=== PATIENT | female | born 1985 | race Caucasian/White ===

== ENCOUNTER → 2018-10-05 | Outpatient (CLI) | payer BC ==
--- NOTE | 2018-10-05 15:19 | US ---
EXAMINATION TYPE: US pelvis complete transvag DATE OF EXAM: 10/05/2018 COMPARISON: NONE CLINICAL HISTORY: N93.8 DUB. TECHNIQUE: Transvaginal (TV) and Transabdominal (TA) . Transabdominal sonographic images of the pel vis were acquired. Transvaginal sonographic images were medically necessary to better assess the fol lowing anatomy: Uterus Date of LMP: 09/06/18 EXAM MEASUREMENTS: Uterus: 9.0 x 4.9 x 5.0 cm Endometrial Stripe: 1.9 cm Right Ovary: 3.4 x 2.1 x 1.9 cm Left Ovary: 2.7 x 1.4 x 1.5 cm 1. Uterus: Anteverted, heterogeneous, multiple probable fibroids, 1.) 1.3 x 1.4 x 1.3cm, 2.) 2.1 x 2.0 x 1.7cm 2. Endometrium: Abnormally thickened 3. Right Ovary: wnl 4. Left Ovary: wnl 5. Bilateral Adnexa: wnl 6. Posterior cul-de-sac: wnl IMPRESSION: Heterogenous lobulated uterine myometrium with multiple probable uterine leiomyomas. Additionally the re is abnormal endometrial thickening with the endometrium measuring up to 1.9 cm. This could be on t he basis of endometrial hyperplasia, endometrial polyp or less likely endometrial neoplasm and could be further evaluated with sonohysterogram or direct visualization.
[2018-10-05 15:53] LABS: HCT 37.9 % (34.0-46.0); HGB 12.5 gm/dL (11.4-16.0); MCH 28.3 pg (25.0-35.0); MCV 85.6 fL (80.0-100.0); Mean Platelet Volume 6.8; Platelet Count 346 k/uL (150-450); RBC 4.43 m/uL (3.80-5.40); RDW 14.2 % (11.5-15.5); WBC 9.4 k/uL (3.8-10.6)
[2018-10-05 16:18] LABS: T4, Free (Free Thyroxine) 0.96 ng/dL (0.78-2.19)
[2018-10-05 23:12] LABS: Progesterone 3.3 ng/mL
== END ==
LOC: RADUSWWP 14:20
PROVIDERS: ATTEND Obstetrics & Gynecology
DX: R93.89 Abnormal findings on diagnostic imaging of other specified body structures (principal); N93.8 Other specified abnormal uterine and vaginal bleeding; Z13.29 Encounter for screening for other suspected endocrine disorder
CPT/HCPCS: 36415; 76830; 76856; 82670; 83001; 83002; 84144; 84146; 84439; 84443; 84479; 85027

== ENCOUNTER → 2018-12-03 | Day surgery (SDC) | payer BC ==
[2018-11-30 08:50] VITALS: BMI 26.7
[~2018-12-03] MED LIST: DEXAMETHASONE SOD PHOSPHATE 10 MG/ML 1 ML VIAL IV ONE; HYDROmorphone 0.5 MG/0.5 ML SYRINGE IVP PRN; KETOROLAC 30 MG/ML 1 ML VIAL IVP SCH; KETOROLAC 30 MG/ML 1 ML VIAL ONE; LACTATED RINGERS 1,000 ML IV SCH; LIDOCAINE 1% 20 ML VIAL (10MG/ML) FOR IV START INTRADERMA PRN; LIDOCAINE 1% INJ 10MG/ML (20 ML MDV) ONE; MIDAZOLAM 2 MG/2 ML VIAL ONE; ONDANSETRON 4 MG/2 ML VIAL IVP PRN; PROPOFOL 10 MG/ML 20 ML VIAL IV ONE; Pre Op ABX Message 1 EACH MISC MISCELLANE ONE; SCOPOLAMINE 1.5MG/72HR PATCH TRANSDERM ONE; fentaNYL (PF) 50 MCG/ML 2 ML AMP ONE
--- NOTE | 2018-12-03 08:11 | P.HPOB ---
History of Present Illness H&P Date: 12/03/18 Chief Complaint: Dysfunctional uterine bleeding/menorrhagia Manuela is a 33-year-old female with history of tube ligation who has heavy vaginal bleeding. Patient's had very heavy vaginal bleeding for last several months and is interested in permanent solution. She is scheduled for D&C with hysteroscopy NovaSure ablation. Risks/benefits/alternatives were reviewed with patient in detail and all questions were answered for her prior to proceeding to the operating room. Past Medical History Past Medical History: Neurologic Disorder, Osteoarthritis (OA) Additional Past Medical History / Comment(s): TOURETTE SYNDROME, History of Any Multi-Drug Resistant Organisms: None Reported Past Surgical History: Tubal Ligation Past Anesthesia/Blood Transfusion Reactions: No Reported Reaction Smoking Status: Former smoker - Past Family History Mother Family Medical History: No Reported History Medications and Allergies Home Medications Medication Instructions Recorded Confirmed Type Atomoxetine HCl [Strattera] 40 mg PO QAM 11/30/18 12/03/18 History Cholecalciferol [Vitamin D3 (25 2,000 unit PO DAILY 11/30/18 12/03/18 History Mcg = 1000 Iu)] Cyclobenzaprine [Flexeril] 10 mg PO TID PRN 11/30/18 12/03/18 History FLUoxetine HCL [PROzac] 20 mg PO HS 11/30/18 12/03/18 History Fish Oil/Dha/Epa [Fish Oil 1,200 1 each PO DAILY 11/30/18 12/03/18 History mg Fish Oil] Naproxen 500 mg PO Q12H PRN 11/30/18 12/03/18 History cloNIDine HCL [Catapres] 0.1 mg PO TID 11/30/18 12/03/18 History Naproxen [Naprosyn] 500 mg PO Q12HR #30 tab 12/03/18 Rx Allergies Allergy/AdvReac Type Severity Reaction Status Date / Time No Known Allergies Allergy Verified 12/03/18 07:01 Exam Osteopathic Statement: *. No significant issues noted on an osteopathic structural exam other than those noted in the History and Physical/Consult. Vital Signs Temp Pulse Resp BP Pulse Ox 12/03/18 07:00 97.7 F 74 16 125/82 98 Intake and Output 12/02/18 12/03/18 12/03/18 22:59 06:59 14:59 Intake Total 500 Output Total 3 Balance 497 Intake: IV 500 Output: Estimated Blood Loss 3 Other: Weight 80.286 kg - OBG Physical Exam Breast: both: normal (no masses) Abdomen: bowel sounds normal, no diffuse tenderness, no bruit present, no guarding noted, no hepatomegaly, no splenomegaly, no mass Vulva: both: normal Vagina: normal moisture, no discharge Cervix: no lesion, no discharge Uterus: normal size, normal contour Adnexa: both: normal Anus/Rectum: normal perianal skin, no rectal mass, no hemorrhoids, heme negative
--- NOTE | 2018-12-03 08:14 | P.OP ---
Date of Procedure: 12/03/18 Preoperative Diagnosis: Dysfunctional uterine bleeding/menorrhagia Postoperative Diagnosis: Same with sebaceous cyst Procedure(s) Performed: D&C with hysteroscopy NovaSure ablation, manual drainage of sebaceous cyst Anesthesia: DAVID Surgeon: Aditya Shah Estimated Blood Loss (ml): 3 IV fluids (ml): 400 Pathology: none sent (Uterine curettings) Condition: stable Disposition: same day Operative Findings: 1 cm sebaceous cyst right labia was drained with pressure. Otherwise tissue pathology is pending for D&C Description of Procedure: Patient was taken to the operative suite where general anesthetic found be adequate. She was prepped and draped in the normal sterile fashion and placed in dorsal lithotomy position. Initially a sebaceous cyst was noted in the right labia and using direct pressure was drained. Once this was accomplished weighted speculum was inserted into the vagina and the anterior lip of the cervix identified grasped with an Allis clamp and cervix was dilated. Once this was completed camera was inserted suspect polyp aced on hysteroscopic finding. Camera was then removed and sharp curettings of endometrium were obtained all tissues placed on Telfa and sent to pathology for evaluation. Once completed NovaSure system was inserted with length of 4.5 and a width of 3.5 it was tested. Once pain test was completed it was enabled and burned for 89 seconds. Conclusion the burn NovaSure was removed and camera was reinserted with good burn noted. All incidents were then removed. Sponge, lap, needle counts were all correct 2. Patient was then taken to the recovery room in stable and satis factory condition. Plan - Discharge Summary Discharge Rx Participant: No New Discharge Prescriptions: New Naproxen [Naprosyn] 500 mg PO Q12HR #30 tab No Action Cholecalciferol [Vitamin D3 (25 Mcg = 1000 Iu)] 2,000 unit PO DAILY cloNIDine HCL [Catapres] 0.1 mg PO TID FLUoxetine HCL [PROzac] 20 mg PO HS Atomoxetine HCl [Strattera] 40 mg PO QAM Cyclobenzaprine [Flexeril] 10 mg PO TID PRN PRN Reason: Muscle Spasm Naproxen 500 mg PO Q12H PRN PRN Reason: Pain Fish Oil/Dha/Epa [Fish Oil 1,200 mg Fish Oil] 1 each PO DAILY Discharge Medication List Atomoxetine HCl [Strattera] 40 mg PO QAM 11/30/18 [History] Cholecalciferol [Vitamin D3 (25 Mcg = 1000 Iu)] 2,000 unit PO DAILY 11/30/18 [History] Cyclobenzaprine [Flexeril] 10 mg PO TID PRN 11/30/18 [History] FLUoxetine HCL [PROzac] 20 mg PO HS 11/30/18 [History] Fish Oil/Dha/Epa [Fish Oil 1,200 mg Fish Oil] 1 each PO DAILY 11/30/18 [History] Naproxen 500 mg PO Q12H PRN 11/30/18 [History] cloNIDine HCL [Catapres] 0.1 mg PO TID 11/30/18 [History] Naproxen [Naprosyn] 500 mg PO Q12HR #30 tab 12/03/18 [Rx] Follow up Appointment(s)/Referral(s): Aditya Shah DO [Doctor of Osteopathic Medicine] - 2 Weeks Activity/Diet/Wound Care/Special Instructions: No heavy lifting, limit stairs and driving today, and pelvic rest. If any high temperatures, heavy bleeding, or severe pain call my office Discharge Disposition: HOME SELF-CARE
[2018-12-03 08:21] VITALS: TEMP 97.2
[2018-12-03 08:48] VITALS: RESP 16
[2018-12-03 09:19] VITALS: PULSE 65
[2018-12-03 09:52] VITALS: BP 130/86
== END | disposition home or self-care (01) ==
LOC: OR 06:33
PROVIDERS: ATTEND Obstetrics & Gynecology
DX: N92.0 Excessive and frequent menstruation with regular cycle (principal); Z79.899 Other long term (current) drug therapy; Z87.891 Personal history of nicotine dependence; L72.3 Sebaceous cyst
CPT/HCPCS: 81025; 88305; 84703; 58563; J2250; J1100; J2405; J2001; J3010; J1885; J2704